=== PATIENT | male | born 1980 | race Caucasian/White ===

== ENCOUNTER 2018-05-02 10:05 | Emergency (ER) | payer OTHER ==
[~2018-05-02] VITALS: Ht 177.8 cm; Wt 77.1 kg
[~2018-05-02 10:05] MED LIST: CEFD300 PO; CEPH500 PO; CYCL10 PO; DICL25ER PO; HYDACE5 PO; HYDR1TAB94 PO; IBU; IBUP200; Keflex500 MG PO; METH10 PO; NAPR550 PO; Norco 5-325 Ta1 EACH PO; OXYACE5T PO; OXYC1TAB11; Percocet 5-3251 EACH PO; Zofran Odt8 MG SL
[2018-05-02 10:45] LABS: Calcium, Ionized (POC) 1.19 mmol/L (1.10-1.46); Chloride (POC) 101 mmol/L (98-108); Glucose (ISTAT POC) 102 mg/dL (70-99); Hemoglobin (POC) 12.9 g/dL (13.5-17.5); Potassium (POC) 3.3 mmol/L (3.5-5.5); Sodium (POC) 142 mmol/L (135-148); Total CO2 (POC) 28 mmol/L (21-32)
== END 2018-05-02 12:33 | disposition home or self-care (01) ==
LOC: ER 10:05
PROVIDERS: Internal Medicine
DX: T50.7X1A Poisoning by analeptics and opioid receptor antagonists, accidental (unintentional), initial encounter (principal); Z79.899 Other long term (current) drug therapy
CPT/HCPCS: 36415; 74018; 80047; 85014; 96374; 96375; 99283; J2310; J2405; J3490